=== PATIENT | male | born 1940 | race Caucasian/White ===

== ENCOUNTER 2021-12-13 16:49 | Inpatient (IN) | payer MEDICARE, MEDICAID ==
[~2021-12-13] VITALS: Ht 177.8 cm; Wt 85.4 kg
[2021-12-13] MEDS ORDERED: SODIUM CHLORIDE 0.9% 1,000 ML IV ONE ×2 (17:15→20:30)
[2021-12-13] MEDS ORDERED: MORPHINE SULFATE 4 MG/ML CPJ (NOT FOR IM USE) IV ONE (17:15)
[2021-12-13] MEDS ORDERED: LORAZEPAM 2MG/ML CPJ IM ONE (17:15)
[2021-12-13] MEDS ORDERED: OLANZAPINE 10 MG/VIAL IM ONE (17:15)
[2021-12-13] MEDS ORDERED: MINERAL OIL ENEMA 133ML PR ONE (17:15)
[2021-12-13 17:57] LABS: HEMATOCRIT. 45.4 % (42.0-52.0); HEMOGLOBIN. 15.3 g/dL (14.0-18.0); MEAN CORPUSCULAR HEMOGLOBIN 28.5 pg (28.0-32.0); MEAN CORPUSCULAR VOLUME 84.8 fL (80.0-94.0); PLATELET 262 x1000/uL (130-400); RED BLOOD CELL COUNT 5.35 mill/uL (4.7-6.1)
[2021-12-13 18:02] LABS: CHLORIDE 100 mEq/L (98-107)
[2021-12-13 18:06] LABS: INR 1.2
[2021-12-13 18:24] LABS: CLARITY URINE CLOUDY (CLEAR); COLOR URINE ORANGE (YELLOW); KETONES URINE TRACE (NEGATIVE); LEUKOCYTE ESTERASE URINE 1+ (NEGATIVE); NITRITE URINE POSITIVE (NEGATIVE); OCCULT BLOOD URINE 3+ (NEGATIVE); PH URINE 5.5 (4.5-8.0); PROTEIN URINE 2+ (NEGATIVE)
[2021-12-13] MEDS ORDERED: CEFTRIAXONE 1 G PREMIX 50 ML IV ONE (18:45)
[2021-12-13 19:49] LABS: PLATELET ESTIMATE NORMAL
[2021-12-13] MEDS ORDERED: ONDANSETRON HCL 4MG/2ML INJ IV PRN (22:15)
[2021-12-13] MEDS ORDERED: IPRATROPIUM/ALBUTEROL 0.5-3(2.5)MG/3ML NEB NEB PRN (22:15)
[2021-12-13] MEDS ORDERED: MAGNESIUM/ALUMINUM HYDROXIDE/SIMETHICONE 30ML UDC PO PRN (22:15)
[2021-12-13] MEDS ORDERED: ACETAMINOPHEN 325MG TABLET PO PRN (22:15)
[2021-12-13] MEDS ORDERED: GUAIFENESIN 200MG/10ML SUGAR FREE UDC PO PRN (22:15)
[2021-12-13] MEDS ORDERED: CLONIDINE 0.1MG TABLET PO PRN (22:15)
[2021-12-13 23:00] VITALS: BP 116/55
[2021-12-14] VITALS: BP 116/55
[2021-12-14] MEDS: SODIUM CHLORIDE 0.9% 1,000 ML IV SCH ×4 (01:09→22:15)
[2021-12-14 04:00] VITALS: BP 122/59
[2021-12-14 08:00] VITALS: BP 127/67
[2021-12-14] MEDS ORDERED: HYDROXYZINE 25MG TABLET PO SCH (09:00)
[2021-12-14] MEDS: ENOXAPARIN 40MG/0.4ML SYR SUBCUT SCH (09:23)
[2021-12-14] MEDS ORDERED: NA PHOS,M-B/NA PHOS,DI-BA ENEMA 118ML PR SCH (14:45)
[2021-12-14 15:20] LABS: HEMATOCRIT. 37.6 % (42.0-52.0); HEMOGLOBIN. 12.5 g/dL (14.0-18.0); MEAN CORPUSCULAR HEMOGLOBIN 28.4 pg (28.0-32.0); MEAN CORPUSCULAR VOLUME 85.5 fL (80.0-94.0); MEAN PLATELET VOLUME 8.5 fl (7.4-10.4); PLATELET 191 x1000/uL (130-400); RED CELL DISTRIBUTION WIDTH 15.4 % (11.6-14.6)
[2021-12-14 15:42] LABS: CHLORIDE 107 mEq/L (98-107)
[2021-12-14 15:48] LABS: PHOSPHORUS 1.7 mg/dL (2.5-4.9)
[2021-12-14 15:59] LABS: PLATELET ESTIMATE NORMAL
[2021-12-14] MEDS ORDERED: NALOXONE HCL 0.4MG/ML VIAL IV PRN (18:30)
[2021-12-14] MEDS ORDERED: LACTULOSE 20G/30ML UDC PO NR (18:30)
[2021-12-14 20:00] VITALS: BP 119/65
[2021-12-14] MEDS ORDERED: BISACODYL 10MG SUPP PR NR (21:00)
[2021-12-14] MEDS ORDERED: SENNOSIDES 8.6MG TABLET PO PRN (21:00)
[2021-12-14] MEDS: CEFTRIAXONE 1,000 MG in DEXTROSE 5% WATER 50 ML IV SCH (21:40)
[2021-12-14] MEDS: HYDROCODONE/ACETAMINOPHEN 5/325MG TABLET PO PRN (22:27)
[2021-12-15] VITALS: BP 124/55
[2021-12-15] MEDS ORDERED: VENL-179 PO (00:15)
[2021-12-15] MEDS ORDERED: QUET25TA36 PO (00:15)
[2021-12-15] MEDS ORDERED: ATOR20TA65 PO (00:15)
[2021-12-15] MEDS ORDERED: MEMA28CA5 PO (00:15)
[2021-12-15] MEDS ORDERED: MIDO5TAB4 PO (00:15)
[2021-12-15] MEDS ORDERED: LEVE500T19 PO (00:15)
[2021-12-15] MEDS: QUETIAPINE FUMARATE 50MG TABLET PO SCH ×2 (00:38→13:05)
[2021-12-15] MEDS: LEVETIRACETAM 500MG TABLET PO SCH ×3 (00:38→20:39)
[2021-12-15 04:00] VITALS: BP 129/54
[2021-12-15] MEDS: SODIUM CHLORIDE 0.9% 1,000 ML IV SCH ×3 (06:15→23:28)
[2021-12-15 06:41] LABS: CHLORIDE 112 mEq/L (98-107)
[2021-12-15 08:00] VITALS: BP 166/46
[2021-12-15] MEDS: VENLAFAXINE HCL 37.5MG TABLET PO SCH (13:06)
[2021-12-15] MEDS: MEMANTINE HCL 10MG TABLET PO SCH ×2 (13:06→20:41)
[2021-12-15] MEDS: MIDODRINE HCL 5MG TABLET PO SCH (13:06)
[2021-12-15] MEDS: ENOXAPARIN 40MG/0.4ML SYR SUBCUT SCH (13:07)
[2021-12-15] MEDS: METRONIDAZOLE 500 MG PREMIX 100 ML IV SCH ×2 (13:07→18:23)
[2021-12-15 13:23] LABS: HEMATOCRIT. 34.8 % (42.0-52.0); HEMOGLOBIN. 11.6 g/dL (14.0-18.0); MEAN CORPUSCULAR HEMOGLOBIN 28.5 pg (28.0-32.0); MEAN CORPUSCULAR VOLUME 85.8 fL (80.0-94.0); MEAN PLATELET VOLUME 8.1 fl (7.4-10.4); PLATELET 189 x1000/uL (130-400); RED BLOOD CELL COUNT 4.06 mill/uL (4.7-6.1); RED CELL DISTRIBUTION WIDTH 15.3 % (11.6-14.6)
[2021-12-15 14:07] LABS: ATYPICAL LYMPHOCYTES 1; PLATELET ESTIMATE NORMAL
[2021-12-15] MEDS ORDERED: POLYETHYLENE GLYCOL 3350 (17GM) 1 DOSE PACK PO ONE (14:30)
[2021-12-15] MEDS ORDERED: POTASSIUM CHLORIDE 20MEQ/PACKET PO NR (15:00)
[2021-12-15] MEDS ORDERED: SORBITOL 70% SOLN 30ML PO NR (15:00)
[2021-12-15] MEDS ORDERED: NA PHOS,M-B/NA PHOS,DI-BA ENEMA 118ML PR NR (15:30)
[2021-12-15 16:00] VITALS: BP 138/59
[2021-12-15] MEDS: BISACODYL 10MG SUPP PR SCH (16:21)
[2021-12-15 20:00] VITALS: BP 103/54
[2021-12-15] MEDS: CEFTRIAXONE 1,000 MG in DEXTROSE 5% WATER 50 ML IV SCH (20:39)
[2021-12-15] MEDS: ATORVASTATIN CALCIUM 20MG TABLET PO SCH (20:40)
[2021-12-15] MEDS: QUETIAPINE FUMARATE 25MG TABLET PO SCH ×2 (20:41→20:55)
[2021-12-15] MEDS: ACETAMINOPHEN 325MG TABLET PO PRN (20:42)
[2021-12-15] MEDS ORDERED: LORAZEPAM 2MG/ML CPJ IV NR (23:20)
[2021-12-16] VITALS: BP 142/98
[2021-12-16] MEDS: METRONIDAZOLE 500 MG PREMIX 100 ML IV SCH ×3 (01:37→18:54)
[2021-12-16 04:00] VITALS: BP 119/65
[2021-12-16] MEDS: SODIUM CHLORIDE 0.9% 1,000 ML IV SCH ×3 (05:57→22:20)
[2021-12-16 07:40] LABS: HEMATOCRIT. 34.5 % (42.0-52.0); HEMOGLOBIN. 11.6 g/dL (14.0-18.0); MEAN CORPUSCULAR HEMOGLOBIN 28.7 pg (28.0-32.0); MEAN CORPUSCULAR VOLUME 85.3 fL (80.0-94.0); MEAN PLATELET VOLUME 8.3 fl (7.4-10.4); PLATELET 186 x1000/uL (130-400); RED BLOOD CELL COUNT 4.04 mill/uL (4.7-6.1); RED CELL DISTRIBUTION WIDTH 15.4 % (11.6-14.6)
[2021-12-16 07:46] LABS: CHLORIDE 114 mEq/L (98-107)
[2021-12-16 08:23] VITALS: BP 125/68
[2021-12-16] MEDS: BISACODYL 10MG SUPP PR SCH (09:00)
[2021-12-16] MEDS: LEVETIRACETAM 500MG TABLET PO SCH ×2 (09:00→20:44)
[2021-12-16] MEDS: QUETIAPINE FUMARATE 25MG TABLET PO SCH ×2 (09:40→20:44)
[2021-12-16] MEDS: MIDODRINE HCL 5MG TABLET PO SCH (09:41)
[2021-12-16] MEDS: MEMANTINE HCL 10MG TABLET PO SCH ×2 (09:41→20:44)
[2021-12-16] MEDS: DOCUSATE SODIUM 250MG CAPSULE PO SCH (09:41)
[2021-12-16] MEDS: VENLAFAXINE HCL 37.5MG TABLET PO SCH (09:41)
[2021-12-16] MEDS: ENOXAPARIN 40MG/0.4ML SYR SUBCUT SCH (09:44)
[2021-12-16] MEDS ORDERED: POTASSIUM CHLORIDE INJ 40 MEQ in DEXT 5% WATER 250 ML IV ONE (09:45)
[2021-12-16 12:00] VITALS: BP 114/57
[2021-12-16] MEDS ORDERED: POTASSIUM CHLORIDE 20MEQ/PACKET PO NR (13:00)
[2021-12-16 14:31] LABS: PLATELET ESTIMATE NORMAL
[2021-12-16 16:00] VITALS: BP 121/62
[2021-12-16] MEDS ORDERED: SORBITOL 70% SOLN 30ML PO NR (16:00)
[2021-12-16] MEDS: KCL 20MEQ/100ML X 2 FOR TOTAL KCL 40MEQ/200ML IV SCH (17:06)
[2021-12-16 20:00] VITALS: BP 137/63
[2021-12-16] MEDS: CEFTRIAXONE 1,000 MG in DEXTROSE 5% WATER 50 ML IV SCH (20:44)
[2021-12-16] MEDS: ATORVASTATIN CALCIUM 20MG TABLET PO SCH (20:44)
[2021-12-17] VITALS: BP 119/57
[2021-12-17] MEDS: METRONIDAZOLE 500 MG PREMIX 100 ML IV SCH ×3 (02:05→18:09)
[2021-12-17] MEDS: QUETIAPINE FUMARATE 25MG TABLET PO PRN (03:07)
[2021-12-17] MEDS: SODIUM CHLORIDE 0.9% 1,000 ML IV SCH ×2 (03:08→14:11)
[2021-12-17 04:00] VITALS: BP 125/77
[2021-12-17] MEDS: DOCUSATE SODIUM 250MG CAPSULE PO SCH ×2 (09:00→09:28)
[2021-12-17] MEDS: BISACODYL 10MG SUPP PR SCH (09:27)
[2021-12-17] MEDS: MEMANTINE HCL 10MG TABLET PO SCH ×2 (09:27→21:46)
[2021-12-17] MEDS: ENOXAPARIN 40MG/0.4ML SYR SUBCUT SCH (09:27)
[2021-12-17] MEDS: VENLAFAXINE HCL 37.5MG TABLET PO SCH (09:27)
[2021-12-17] MEDS: MIDODRINE HCL 5MG TABLET PO SCH (09:28)
[2021-12-17] MEDS: QUETIAPINE FUMARATE 25MG TABLET PO SCH ×2 (09:28→21:47)
[2021-12-17] MEDS: LEVETIRACETAM 500MG TABLET PO SCH ×2 (09:28→21:46)
[2021-12-17 09:54] LABS: HEMATOCRIT. 35.9 % (42.0-52.0); HEMOGLOBIN. 11.7 g/dL (14.0-18.0); MEAN CORPUSCULAR HEMOGLOBIN 28.8 pg (28.0-32.0); MEAN CORPUSCULAR VOLUME 88.3 fL (80.0-94.0); MEAN PLATELET VOLUME 7.7 fl (7.4-10.4); PLATELET 147 x1000/uL (130-400); RED BLOOD CELL COUNT 4.06 mill/uL (4.7-6.1)
[2021-12-17 12:00] VITALS: BP 120/60
[2021-12-17 12:19] LABS: CHLORIDE 114 mEq/L (98-107)
[2021-12-17 13:14] LABS: PHOSPHORUS 0.9 mg/dL (2.5-4.9)
[2021-12-17] MEDS ORDERED: POTASSIUM CHLORIDE 20MEQ/PACKET PO NR (14:00)
[2021-12-17 15:41] LABS: PLATELET ESTIMATE NORMAL
[2021-12-17 16:00] VITALS: BP 134/67
[2021-12-17] MEDS ORDERED: POTASSIUM PHOS,M-BASIC-D-BASIC 30 MMOL in SODIUM CHLORIDE 0.9% 500 ML IV SCH (16:00)
[2021-12-17 20:00] VITALS: BP 123/67
[2021-12-17] MEDS: ATORVASTATIN CALCIUM 20MG TABLET PO SCH (21:46)
[2021-12-17] MEDS: CEFTRIAXONE 1,000 MG in DEXTROSE 5% WATER 50 ML IV SCH (21:47)
[2021-12-18] VITALS: BP 118/65
[2021-12-18] MEDS: METRONIDAZOLE 500 MG PREMIX 100 ML IV SCH ×3 (01:35→18:00)
[2021-12-18 04:00] VITALS: BP 103/54
[2021-12-18] MEDS: SODIUM CHLORIDE 0.9% 1,000 ML IV SCH ×3 (06:14→14:17)
[2021-12-18 07:23] LABS: HEMATOCRIT. 34.6 % (42.0-52.0); HEMOGLOBIN. 11.4 g/dL (14.0-18.0); MEAN CORPUSCULAR HEMOGLOBIN 27.8 pg (28.0-32.0); MEAN CORPUSCULAR VOLUME 84.6 fL (80.0-94.0); MEAN PLATELET VOLUME 8.1 fl (7.4-10.4); PLATELET 172 x1000/uL (130-400); RED BLOOD CELL COUNT 4.08 mill/uL (4.7-6.1); RED CELL DISTRIBUTION WIDTH 15.9 % (11.6-14.6)
[2021-12-18 07:48] LABS: CHLORIDE 113 mEq/L (98-107)
[2021-12-18 08:00] VITALS: BP 130/80
[2021-12-18] MEDS ORDERED: POTASSIUM CHLORIDE 20MEQ TABLET SR PO NR ×2 (08:00→18:00)
[2021-12-18] MEDS: ENOXAPARIN 40MG/0.4ML SYR SUBCUT SCH ×2 (09:00→09:44)
[2021-12-18] MEDS: BISACODYL 10MG SUPP PR SCH ×2 (09:00→09:44)
[2021-12-18] MEDS: MIDODRINE HCL 5MG TABLET PO SCH ×2 (09:00→09:43)
[2021-12-18] MEDS: QUETIAPINE FUMARATE 25MG TABLET PO SCH ×3 (09:00→21:11)
[2021-12-18] MEDS: DOCUSATE SODIUM 250MG CAPSULE PO SCH ×2 (09:00→09:44)
[2021-12-18] MEDS: MEMANTINE HCL 10MG TABLET PO SCH ×3 (09:00→21:09)
[2021-12-18] MEDS: VENLAFAXINE HCL 37.5MG TABLET PO SCH ×2 (09:00→09:44)
[2021-12-18] MEDS: LEVETIRACETAM 500MG TABLET PO SCH ×3 (09:00→21:09)
[2021-12-18] MEDS ORDERED: POTASSIUM CHLORIDE INJ 40 MEQ in DEXT 5% WATER 250 ML IV ONE (10:15)
[2021-12-18] MEDS: KCL 20MEQ/100ML X 2 FOR TOTAL KCL 40MEQ/200ML IV SCH ×2 (11:32→14:16)
[2021-12-18] MEDS: HYDROCODONE/ACETAMINOPHEN 5/325MG TABLET PO PRN (11:43)
[2021-12-18 12:00] VITALS: BP 108/42
[2021-12-18 15:46] LABS: PLATELET ESTIMATE NORMAL
[2021-12-18 16:00] VITALS: BP 118/76
[2021-12-18 16:14] LABS: CHLORIDE 114 mEq/L (98-107)
[2021-12-18 16:20] LABS: PHOSPHORUS 1.2 mg/dL (2.5-4.9)
[2021-12-18] MEDS ORDERED: KCL 20MEQ/100ML PREMIX 100 ML IV ONE (18:00)
[2021-12-18 20:00] VITALS: BP 117/63
[2021-12-18] MEDS ORDERED: POTASSIUM PHOS,M-BASIC-D-BASIC 30 MMOL in SODIUM CHLORIDE 0.9% 500 ML IV NR (20:00)
[2021-12-18] MEDS: KCL 20MEQ/100ML PREMIX 100 ML IV SCH ×2 (21:04→23:22)
[2021-12-18] MEDS: ATORVASTATIN CALCIUM 20MG TABLET PO SCH (21:09)
[2021-12-18] MEDS: CEFTRIAXONE 1,000 MG in DEXTROSE 5% WATER 50 ML IV SCH (21:11)
[2021-12-19] VITALS: BP 133/94
[2021-12-19] MEDS: METRONIDAZOLE 500 MG PREMIX 100 ML IV SCH ×3 (02:09→17:03)
[2021-12-19 04:00] VITALS: BP 122/65
[2021-12-19 08:00] VITALS: BP 132/84
[2021-12-19] MEDS: ENOXAPARIN 40MG/0.4ML SYR SUBCUT SCH ×2 (08:35→08:59)
[2021-12-19] MEDS: MEMANTINE HCL 10MG TABLET PO SCH ×2 (08:37→20:35)
[2021-12-19] MEDS: BISACODYL 10MG SUPP PR SCH ×2 (08:37→14:34)
[2021-12-19] MEDS: MIDODRINE HCL 5MG TABLET PO SCH (08:37)
[2021-12-19] MEDS: QUETIAPINE FUMARATE 25MG TABLET PO SCH ×2 (08:37→20:37)
[2021-12-19] MEDS: VENLAFAXINE HCL 37.5MG TABLET PO SCH (08:37)
[2021-12-19] MEDS: LEVETIRACETAM 500MG TABLET PO SCH ×2 (08:37→20:35)
[2021-12-19] MEDS: DOCUSATE SODIUM 250MG CAPSULE PO SCH ×2 (08:37→08:47)
[2021-12-19 12:24] VITALS: BP 161/68
[2021-12-19] MEDS: SODIUM CHLORIDE 0.9% 1,000 ML IV SCH ×2 (13:50→20:37)
[2021-12-19 16:00] VITALS: BP 131/62
[2021-12-19] MEDS ORDERED: POTASSIUM CHLORIDE 20MEQ/PACKET PO ONE (16:00)
[2021-12-19] MEDS: METOCLOPRAMIDE HCL 10MG/2ML VIAL IV SCH (17:03)
[2021-12-19] MEDS ORDERED: SORBITOL 70% SOLN 30ML PO NR (18:00)
[2021-12-19 20:00] VITALS: BP 110/68
[2021-12-19] MEDS: ATORVASTATIN CALCIUM 20MG TABLET PO SCH (20:35)
[2021-12-19 21:53] LABS: HEMATOCRIT. 38.6 % (42.0-52.0); HEMOGLOBIN. 12.9 g/dL (14.0-18.0); MEAN CORPUSCULAR HEMOGLOBIN 28.4 pg (28.0-32.0); MEAN CORPUSCULAR VOLUME 84.7 fL (80.0-94.0); MEAN PLATELET VOLUME 7.6 fl (7.4-10.4); PLATELET 201 x1000/uL (130-400); RED BLOOD CELL COUNT 4.56 mill/uL (4.7-6.1); RED CELL DISTRIBUTION WIDTH 16.1 % (11.6-14.6)
[2021-12-19 22:07] LABS: CHLORIDE 111 mEq/L (98-107)
[2021-12-19 22:12] LABS: PHOSPHORUS 1.2 mg/dL (2.5-4.9)
[2021-12-19] MEDS: NA PHOS,M-B/NA PHOS,DI-BA ENEMA 118ML PR SCH ×2 (22:28→23:00)
[2021-12-19] MEDS: CEFTRIAXONE 1,000 MG in DEXTROSE 5% WATER 50 ML IV SCH (22:28)
[2021-12-19 22:37] LABS: PLATELET ESTIMATE NORMAL
[2021-12-20] VITALS: BP 118/88
[2021-12-20] MEDS: METOCLOPRAMIDE HCL 10MG/2ML VIAL IV SCH ×5 (00:16→23:43)
[2021-12-20] MEDS: QUETIAPINE FUMARATE 25MG TABLET PO PRN (01:54)
[2021-12-20] MEDS: ACETAMINOPHEN 325MG TABLET PO PRN (01:54)
[2021-12-20] MEDS ORDERED: LORAZEPAM 2MG/ML CPJ IV SCH (02:45)
[2021-12-20] MEDS: METRONIDAZOLE 500 MG PREMIX 100 ML IV SCH ×3 (03:03→18:10)
[2021-12-20 04:00] VITALS: BP 96/61
[2021-12-20] MEDS: SODIUM CHLORIDE 0.9% 1,000 ML IV SCH ×3 (05:34→22:19)
[2021-12-20 07:13] LABS: HEMATOCRIT. 34.6 % (42.0-52.0); HEMOGLOBIN. 11.5 g/dL (14.0-18.0); MEAN CORPUSCULAR HEMOGLOBIN 28.3 pg (28.0-32.0); MEAN CORPUSCULAR VOLUME 84.9 fL (80.0-94.0); MEAN PLATELET VOLUME 7.6 fl (7.4-10.4); PLATELET 209 x1000/uL (130-400); RED BLOOD CELL COUNT 4.07 mill/uL (4.7-6.1); RED CELL DISTRIBUTION WIDTH 16.4 % (11.6-14.6)
[2021-12-20 07:33] LABS: CHLORIDE 114 mEq/L (98-107)
[2021-12-20 07:37] LABS: PHOSPHORUS 1.1 mg/dL (2.5-4.9)
[2021-12-20 08:00] VITALS: BP 107/74
[2021-12-20] MEDS: MIDODRINE HCL 5MG TABLET PO SCH (09:00)
[2021-12-20 09:54] LABS: PLATELET ESTIMATE NORMAL
[2021-12-20] MEDS: DOCUSATE SODIUM 250MG CAPSULE PO SCH (09:54)
[2021-12-20] MEDS: MEMANTINE HCL 10MG TABLET PO SCH ×2 (09:55→21:18)
[2021-12-20] MEDS: LEVETIRACETAM 500MG TABLET PO SCH ×2 (09:55→21:18)
[2021-12-20] MEDS: VENLAFAXINE HCL 37.5MG TABLET PO SCH (09:55)
[2021-12-20] MEDS: QUETIAPINE FUMARATE 25MG TABLET PO SCH ×2 (09:56→21:18)
[2021-12-20] MEDS: BISACODYL 10MG SUPP PR SCH (09:58)
[2021-12-20] MEDS: ENOXAPARIN 40MG/0.4ML SYR SUBCUT SCH (09:58)
[2021-12-20] MEDS ORDERED: POTASSIUM PHOS,M-BASIC-D-BASIC 30 MMOL in SODIUM CHLORIDE 0.9% 500 ML IV NR (10:00)
[2021-12-20 12:00] VITALS: BP 128/80
[2021-12-20] MEDS ORDERED: NA PHOS,M-B/NA PHOS,DI-BA ENEMA 118ML PR NR (15:00)
[2021-12-20 16:00] VITALS: BP 115/79
[2021-12-20] MEDS ORDERED: SORBITOL 70% SOLN 30ML PO NR (18:00)
[2021-12-20 20:00] VITALS: BP 134/84
[2021-12-20] MEDS: ATORVASTATIN CALCIUM 20MG TABLET PO SCH (21:18)
[2021-12-20] MEDS: CEFTRIAXONE 1,000 MG in DEXTROSE 5% WATER 50 ML IV SCH (21:18)
[2021-12-21] VITALS: BP 117/82
[2021-12-21] MEDS: METRONIDAZOLE 500 MG PREMIX 100 ML IV SCH ×3 (01:44→18:59)
[2021-12-21 04:00] VITALS: BP 139/75
[2021-12-21] MEDS: METOCLOPRAMIDE HCL 10MG/2ML VIAL IV SCH ×3 (05:15→22:15)
[2021-12-21] MEDS: SODIUM CHLORIDE 0.9% 1,000 ML IV SCH (06:15)
[2021-12-21] MEDS ORDERED: METO-293 PO (07:58)
[2021-12-21] MEDS ORDERED: POLY119P2 PO ×2 (07:58)
[2021-12-21] MEDS ORDERED: BISA10SU62 RC (07:58)
[2021-12-21 08:00] VITALS: BP 158/88
[2021-12-21] MEDS ORDERED: LEVO500T89 PO (08:01)
[2021-12-21] MEDS ORDERED: METR-167 PO (08:01)
[2021-12-21] MEDS: MIDODRINE HCL 5MG TABLET PO SCH (09:00)
[2021-12-21] MEDS: BISACODYL 10MG SUPP PR SCH (09:00)
[2021-12-21] MEDS: MEMANTINE HCL 10MG TABLET PO SCH ×3 (09:22→22:16)
[2021-12-21] MEDS: VENLAFAXINE HCL 37.5MG TABLET PO SCH (09:22)
[2021-12-21] MEDS: LEVETIRACETAM 500MG TABLET PO SCH ×2 (09:22→22:16)
[2021-12-21] MEDS: DOCUSATE SODIUM 250MG CAPSULE PO SCH (09:23)
[2021-12-21] MEDS: QUETIAPINE FUMARATE 25MG TABLET PO SCH ×2 (09:23→22:36)
[2021-12-21] MEDS: ENOXAPARIN 40MG/0.4ML SYR SUBCUT SCH (09:25)
[2021-12-21 12:00] VITALS: BP 146/62
[2021-12-21] MEDS ORDERED: DIATR MEGLU/DIATRIZOATE SOLN 30ML PO SCH ×2 (14:30→18:45)
[2021-12-21] MEDS ORDERED: SIMETHICONE 80MG TABLET CHEW PO PRN (15:15)
[2021-12-21 16:00] VITALS: BP 133/79
[2021-12-21 16:32] LABS: BASOPHILS % 0.1 % (0.0-2.0); EOSINOPHILS % 0.7 % (0.0-5.0); HEMATOCRIT. 34.9 % (42.0-52.0); HEMOGLOBIN. 11.7 g/dL (14.0-18.0); LYMPHOCYTES % 7.7 % (20.0-50.0); MEAN CORPUSCULAR HEMOGLOBIN 28.4 pg (28.0-32.0); MEAN CORPUSCULAR VOLUME 84.9 fL (80.0-94.0); MEAN PLATELET VOLUME 7.6 fl (7.4-10.4); MONOCYTES % 2.5 % (2.0-8.0); PLATELET 214 x1000/uL (130-400); RED BLOOD CELL COUNT 4.11 mill/uL (4.7-6.1); RED CELL DISTRIBUTION WIDTH 16.1 % (11.6-14.6)
[2021-12-21] MEDS ORDERED: METOCLOPRAMIDE HCL 10MG/2ML VIAL ONE (16:40)
[2021-12-21 16:45] LABS: CHLORIDE 112 mEq/L (98-107)
[2021-12-21 16:51] LABS: PHOSPHORUS 1.5 mg/dL (2.5-4.9)
[2021-12-21] MEDS ORDERED: POTASSIUM CHLORIDE INJ 40 MEQ in DEXT 5% WATER 500 ML IV ONE (18:30)
[2021-12-21 20:00] VITALS: BP 138/78
[2021-12-21] MEDS ORDERED: KCL 20MEQ/100ML X 2 FOR TOTAL KCL 40MEQ/200ML IV SCH (20:00)
[2021-12-21] MEDS ORDERED: POTASSIUM CHLORIDE 20MEQ TABLET SR PO NR (20:15)
[2021-12-21] MEDS ORDERED: LEVETIRACETAM 500MG TABLET ONE (20:47)
[2021-12-21] MEDS ORDERED: QUETIAPINE FUMARATE 50MG TABLET ONE (20:48)
[2021-12-21] MEDS ORDERED: POTASSIUM-SODIUM PHOSPHATE POWDER PACKET PO NR (21:00)
[2021-12-21] MEDS ORDERED: POTASSIUM PHOS,M-BASIC-D-BASIC 30 MMOL in SODIUM CHLORIDE 0.9% 500 ML IV NR (21:00)
[2021-12-21] MEDS: ATORVASTATIN CALCIUM 20MG TABLET PO SCH ×2 (21:00→22:16)
[2021-12-21] MEDS: CEFTRIAXONE 1,000 MG in DEXTROSE 5% WATER 50 ML IV SCH (22:14)
[2021-12-22] VITALS: BP 155/81
[2021-12-22] MEDS ORDERED: POTASSIUM-SODIUM PHOSPHATE POWDER PACKET PO NR (01:00)
[2021-12-22] MEDS: METOCLOPRAMIDE HCL 10MG/2ML VIAL IV SCH ×4 (01:02→16:31)
[2021-12-22] MEDS: METRONIDAZOLE 500 MG PREMIX 100 ML IV SCH ×3 (01:02→16:31)
[2021-12-22 04:00] VITALS: BP 148/60
[2021-12-22] MEDS ORDERED: DIATR MEGLU/DIATRIZOATE SOLN 30ML PO SCH ×3 (05:00→12:00)
[2021-12-22] MEDS ORDERED: METOCLOPRAMIDE HCL 10MG/2ML VIAL IV SCH (06:00)
[2021-12-22] MEDS ORDERED: FUROSEMIDE 40MG/4ML VIAL ONE (06:14)
[2021-12-22] MEDS ORDERED: FUROSEMIDE 40MG/4ML VIAL IVP NR (06:30)
[2021-12-22 07:33] LABS: HEMATOCRIT. 38.7 % (42.0-52.0); HEMOGLOBIN. 13.2 g/dL (14.0-18.0); MEAN CORPUSCULAR VOLUME 85.1 fL (80.0-94.0); PLATELET 236 x1000/uL (130-400); RED BLOOD CELL COUNT 4.54 mill/uL (4.7-6.1); RED CELL DISTRIBUTION WIDTH 16.9 % (11.6-14.6)
[2021-12-22 07:44] LABS: CHLORIDE 109 mEq/L (98-107)
[2021-12-22 08:00] VITALS: BP 136/81
[2021-12-22 08:02] LABS: PHOSPHORUS 1.7 mg/dL (2.5-4.9)
[2021-12-22] MEDS: BISACODYL 10MG SUPP PR SCH (11:24)
[2021-12-22] MEDS: POTASSIUM-SODIUM PHOSPHATE POWDER PACKET PO SCH ×2 (11:26→15:00)
[2021-12-22] MEDS: ENOXAPARIN 40MG/0.4ML SYR SUBCUT SCH (11:35)
[2021-12-22] MEDS: DIATR MEGLU/DIATRIZOATE SOLN 30ML PO ONE ×2 (11:35→11:54)
[2021-12-22] MEDS: QUETIAPINE FUMARATE 25MG TABLET PO SCH ×3 (11:36→21:22)
[2021-12-22] MEDS: MEMANTINE HCL 10MG TABLET PO SCH ×3 (11:36→21:22)
[2021-12-22] MEDS: LEVETIRACETAM 500MG TABLET PO SCH ×2 (11:37→21:22)
[2021-12-22] MEDS: MIDODRINE HCL 5MG TABLET PO SCH (11:38)
[2021-12-22] MEDS: DOCUSATE SODIUM 250MG CAPSULE PO SCH (11:39)
[2021-12-22] MEDS: VENLAFAXINE HCL 37.5MG TABLET PO SCH (11:39)
[2021-12-22 12:00] VITALS: BP 122/92
[2021-12-22 12:31] LABS: PLATELET ESTIMATE NORMAL
[2021-12-22 16:00] VITALS: BP 128/66
[2021-12-22] MEDS: FUROSEMIDE 40MG TABLET PO SCH (16:31)
[2021-12-22 20:00] VITALS: BP 136/81
[2021-12-22] MEDS: ATORVASTATIN CALCIUM 20MG TABLET PO SCH ×2 (21:00→21:22)
[2021-12-22] MEDS ORDERED: LEVETIRACETAM 500MG TABLET ONE ×2 (21:19→21:45)
[2021-12-22] MEDS ORDERED: ATORVASTATIN CALCIUM 20MG TABLET ONE (21:20)
[2021-12-22] MEDS: CEFTRIAXONE 1,000 MG in DEXTROSE 5% WATER 50 ML IV SCH (21:22)
[2021-12-23] VITALS: BP 138/72
[2021-12-23] MEDS: METRONIDAZOLE 500 MG PREMIX 100 ML IV SCH ×3 (01:02→18:06)
[2021-12-23] MEDS: METOCLOPRAMIDE HCL 10MG/2ML VIAL IV SCH ×5 (01:02→18:06)
[2021-12-23 04:00] VITALS: BP 142/76
[2021-12-23 08:00] VITALS: BP 151/72
[2021-12-23] MEDS: DOCUSATE SODIUM 250MG CAPSULE PO SCH (09:00)
[2021-12-23] MEDS: MIDODRINE HCL 5MG TABLET PO SCH (09:00)
[2021-12-23] MEDS: VENLAFAXINE HCL 37.5MG TABLET PO SCH (09:00)
[2021-12-23] MEDS: MEMANTINE HCL 10MG TABLET PO SCH ×2 (09:00→22:05)
[2021-12-23] MEDS: ENOXAPARIN 40MG/0.4ML SYR SUBCUT SCH ×2 (09:00→10:41)
[2021-12-23] MEDS: LEVETIRACETAM 500MG TABLET PO SCH ×2 (10:39→22:05)
[2021-12-23] MEDS: FUROSEMIDE 40MG TABLET PO SCH ×2 (10:40→18:06)
[2021-12-23] MEDS: QUETIAPINE FUMARATE 25MG TABLET PO SCH ×2 (10:40→21:47)
[2021-12-23] MEDS: BISACODYL 10MG SUPP PR SCH (10:40)
[2021-12-23 12:00] VITALS: BP 114/66
[2021-12-23 16:00] VITALS: BP 112/54
[2021-12-23 16:50] LABS: BASOPHILS % 0.2 % (0.0-2.0); EOSINOPHILS % 0.8 % (0.0-5.0); HEMATOCRIT. 39.6 % (42.0-52.0); HEMOGLOBIN. 12.4 g/dL (14.0-18.0); MEAN CORPUSCULAR HEMOGLOBIN 28.2 pg (28.0-32.0); MEAN CORPUSCULAR VOLUME 90.1 fL (80.0-94.0); MEAN PLATELET VOLUME 7.7 fl (7.4-10.4); MONOCYTES % 6.4 % (2.0-8.0); NEUTROPHILS % 82.6 % (40.0-76.0); PLATELET 214 x1000/uL (130-400); RED BLOOD CELL COUNT 4.39 mill/uL (4.7-6.1); RED CELL DISTRIBUTION WIDTH 17.9 % (11.6-14.6)
[2021-12-23 16:55] LABS: CHLORIDE 108 mEq/L (98-107)
[2021-12-23 17:01] LABS: PHOSPHORUS 1.9 mg/dL (2.5-4.9)
[2021-12-23 20:00] VITALS: BP_SYST 118; BP_SYST 121; BP_DIAS 75; BP_DIAS 82
[2021-12-23] MEDS ORDERED: LORAZEPAM 2MG/ML CPJ IV NR (21:15)
[2021-12-23] MEDS: CEFTRIAXONE 1,000 MG in DEXTROSE 5% WATER 50 ML IV SCH (21:47)
[2021-12-23] MEDS: ATORVASTATIN CALCIUM 20MG TABLET PO SCH (22:04)
[2021-12-23] MEDS ORDERED: POTASSIUM PHOS,M-BASIC-D-BASIC 15 MMOL in DEXT 5% WATER 245 ML IV SCH (23:59)
[2021-12-24] VITALS: BP 118/75
[2021-12-24] MEDS: METOCLOPRAMIDE HCL 10MG/2ML VIAL IV SCH ×3 (00:17→12:00)
[2021-12-24] MEDS: METRONIDAZOLE 500 MG PREMIX 100 ML IV SCH ×2 (03:07→10:24)
[2021-12-24 04:00] VITALS: BP 108/62
[2021-12-24] MEDS: QUETIAPINE FUMARATE 25MG TABLET PO PRN (04:23)
[2021-12-24 08:00] VITALS: BP 123/72
[2021-12-24] MEDS: DOCUSATE SODIUM 250MG CAPSULE PO SCH (09:00)
[2021-12-24] MEDS: QUETIAPINE FUMARATE 25MG TABLET PO SCH (09:00)
[2021-12-24] MEDS: MIDODRINE HCL 5MG TABLET PO SCH (09:00)
[2021-12-24] MEDS: LEVETIRACETAM 500MG TABLET PO SCH (09:00)
[2021-12-24] MEDS: ENOXAPARIN 40MG/0.4ML SYR SUBCUT SCH (09:00)
[2021-12-24] MEDS: BISACODYL 10MG SUPP PR SCH (09:00)
[2021-12-24] MEDS: VENLAFAXINE HCL 37.5MG TABLET PO SCH (09:00)
[2021-12-24] MEDS: MEMANTINE HCL 10MG TABLET PO SCH (09:00)
[2021-12-24] MEDS: FUROSEMIDE 40MG TABLET PO SCH ×2 (10:24→16:13)
[2021-12-24 12:00] VITALS: BP 136/75
[2021-12-24] MEDS ORDERED: SIME80TA16 PO (12:03)
[2021-12-24] MEDS ORDERED: POLY119P2 PO (12:03)
[2021-12-24] MEDS ORDERED: MOM PO (12:03)
[2021-12-26] MEDS ORDERED: LORA-249 PO (09:36)
== END 2021-12-24 19:34 | disposition home health service (06) | DRG 872 ==
LOC: ER 16:49 → 7EST 19:21 → EDBEDREQTM 19:54 → EDBEDREQ 19:54 → ENRESERV 20:33 → SUPCPDRO 20:58
PROVIDERS: ADMIT Internal Medicine; ATTEND Internal Medicine
DX: A41.9 Sepsis, unspecified organism (principal); N39.0 Urinary tract infection, site not specified; K81.0 Acute cholecystitis; I69.354 Hemiplegia and hemiparesis following cerebral infarction affecting left non-dominant side; E44.0 Moderate protein-calorie malnutrition; F03.91 Unspecified dementia, unspecified severity, with behavioral disturbance; K56.7 Ileus, unspecified; E83.39 Other disorders of phosphorus metabolism; D64.9 Anemia, unspecified; E87.6 Hypokalemia; E80.6 Other disorders of bilirubin metabolism; E78.5 Hyperlipidemia, unspecified; R60.0 Localized edema; R79.89 Other specified abnormal findings of blood chemistry; G40.909 Epilepsy, unspecified, not intractable, without status epilepticus; I25.10 Atherosclerotic heart disease of native coronary artery without angina pectoris; K59.00 Constipation, unspecified; Z87.891 Personal history of nicotine dependence; Z68.27 Body mass index [BMI] 27.0-27.9, adult; Z79.899 Other long term (current) drug therapy; Z74.01 Bed confinement status
CPT/HCPCS: 36415; 74018; 74176; 76700; 76705; 76870; 78227; 80048; 80053; 80076; 81003; 82248; 83735; 83880; 84100; 84145; 85025; 86850; 86900; 93005; 93976; 97162; 99285; A9537; J0696; J1650; J1940; J2060; J2270; J2765; J3480; J3490; J7030; J7040; J7060; Q9963